=== PATIENT | male | born 2000 | race Caucasian/White ===

== ENCOUNTER 2021-10-31 16:23 | Emergency (ER) | payer BC ==
[~2021-10-31] VITALS: Ht 182.9 cm; Wt 70.5 kg
[2021-10-31 16:39] VITALS: BP 131/84
--- NOTE | 2021-10-31 16:56 | RAD ---
Exam: XR KNEE _3 VIEWS_LT History: Snowboarding fall. Comparison: None. Findings: Osseous mineralization is normal. No acute fracture or dislocaton. No significant effusion. The joint spaces are well maintained. No focal soft tissue swelling. Impression: 1. No acute osseous abnormality of the left knee. Electronically signed by: Zev Arciniega MD (10/31/2021 4:54 PM) [facility]
--- NOTE | 2021-10-31 17:13 | PHYS DOC ---
Past History Past Surgical History: No Surgical History Alcohol Use: Occasionally General Adult EDM: Chief Complaint: KNEE INJURY HPI: HPI: 21-year-old male presents with left lateral knee pain. [place] He went off of a jump and came down onto the board flat. His left knee buckled under the pressure. He was very concerned about significant injury so dinkey skinner splinted it and it seemed to come to the hospital. The patient states he is able to bend the knee but it increases the tension and pain. He knows that it is swollen. He denies any numbness or tingling. He has no other injuries at this time. Review of Systems: Review of Systems: Constitutional: Denies fever or chills Eyes: Denies change in visual acuity HENT: Denies nasal congestion or sore throat Respiratory: Denies cough or shortness of breath Cardiovascular: Denies chest pain or edema GI: Denies abdominal pain, nausea, vomiting, bloody stools or diarrhea : Denies dysuria Musculoskeletal: Left knee pain Integument: Denies rash Neurologic: Denies headache, focal weakness or sensory changes Endocrine: Denies polyuria or polydipsia Lymphatic: Denies swollen glands Psychiatric: Denies depression or anxiety Allergies: Allergies: Allergies Coded Allergies Type Severity Reaction Last Updated Verified No Known Drug Allergies 10/31/21 No Physical Exam: PE: Constitutional: Well developed, well nourished, no acute distress, non-toxic appearance. [] HENT: Normocephalic, atraumatic, bilateral external ears normal, oropharynx moist, no oral exudates, nose normal. [] Eyes: PERRLA, EOMI, conjunctiva normal, no discharge. [] Neck: Normal range of motion, no tenderness, supple, no stridor. [] Cardiovascular: Heart rate regular rhythm, no murmur [] Lungs & Thorax: Bilateral breath sounds clear to auscultation [] Abdomen: Bowel sounds normal, soft, no tenderness, no masses, no pulsatile masses. [] Skin: Warm, dry, no erythema, no rash. [] Back: No tenderness, no CVA tenderness. [] Extremities: Left knee with solid end feel with anterior and posterior drawer. Lateral knee pain with varus and valgus stretch though no significant laxity. [] Neurologic: Alert and oriented X 3, normal motor function, normal sensory function, no focal deficits noted. [] Psychologic: Affect normal, judgement normal, mood normal. [] Current Patient Data: Vital Signs: Vital Signs Date Time Temp Pulse Resp B/P (MAP) Pulse Ox O2 Delivery O2 Flow Rate FiO2 10/31/21 16:39 98.1 100 16 131/84 (100) 99 Room Air EKG: EKG: [] Radiology/Procedures: Radiology/Procedures: [] Impressions: Exam: XR KNEE _3 VIEWS_LT History: Snowboarding fall. Comparison: None. Findings: Osseous mineralization is normal. No acute fracture or dislocaton. No significant effusion. The joint spaces are well maintained. No focal soft tissue swelling. Impression: 1. No acute osseous abnormality of the left knee. Electronically signed by: Zev Arciniega MD (10/31/2021 4:54 PM) [facility] DICTATED AND SIGNED BY: ZEV ARCINIEGA MD DATE: 10/31/21 165 CC: JOSE SANFORD DO; PCP,NO ~MTH0 0 Heart Score: C/O Chest Pain: N/A Risk Factors: Risk Factors: DM, Current or recent (<one month) smoker, HTN, HLP, family history of CAD, obesity. Risk Scores: Score 0 - 3: 2.5% MACE over next 6 weeks - Discharge Home Score 4 - 6: 20.3% MACE over next 6 weeks - Admit for Clinical Observation Score 7 - 10: 72.7% MACE over next 6 weeks - Early Invasive Strategies Course & Med Decision Making: Course & Med Decision Making Pertinent Labs and Imaging studies reviewed. (See chart for details) The patient's knee x-ray is negative for fracture. Patient my exam, he has a left lateral collateral ligament strain. I have advised supportive care and RICE therapy. He is stable for discharge at this time. [] Dragon Disclaimer: Dragon Disclaimer: This electronic medical record was generated, in whole or in part, using a voice recognition dictation system. Departure Departure: Impression: Primary Impression: Sprain of lateral collateral ligament of left knee, initial encounter Disposition: HOME / SELF CARE / HOMELESS Condition: STABLE Referrals: PCP,NO (PCP) Patient Instructions: Lateral Collateral Knee Ligament Sprain with Phase I Rehab-Sports[facility] JOSE SANFORD DO Oct 31, 2021 17:13
== END 2021-10-31 17:29 | disposition home or self-care (01) ==
LOC: ER 16:23
DX: S83.422A Sprain of lateral collateral ligament of left knee, initial encounter (principal); W18.39XA Other fall on same level, initial encounter; Y93.23 Activity, snow (alpine) (downhill) skiing, snowboarding, sledding, tobogganing and snow tubing; Y92.89 Other specified places as the place of occurrence of the external cause; Y99.8 Other external cause status
CPT/HCPCS: 73562; 99283-25